=== PATIENT | female | born 1960 | race Caucasian/White ===

== ENCOUNTER 2024-12-27 10:27 | Outpatient (CLI) | payer BC, SELFPAY ==
--- NOTE | ~2024-12-27 | US_ITS ---
EXAMINATION: US VENOUS LOWER EXT ERNIE DATE: 12/27/2024 11:59 INDICATION: Other specified soft tissue disorders. Bilateral lower limb swelling. TECHNIQUE: Grayscale images without and with compression and Doppler images of the bilateral lower extremity veins were obtained. COMPARISON: None. FINDINGS: Right lower extremity: The right common femoral vein, profunda (deep) femoral vein, femoral vein, popliteal vein, peroneal trunk, posterior tibial veins and greater saphenous vein are patent and compressible. Subcutaneous edema at the right calf. Greater saphenous Proximal: 6.6 mm no reflux Mid: 5.6 mm no reflux Distal: 3.6 mm no reflux Lesser saphenous Proximal: 1.3 mm no reflux Distal: 3.8 mm no reflux Left lower extremity: The left common femoral vein, profunda femoral vein, femoral vein, popliteal vein, peroneal trunk, posterior tibial veins and greater saphenous vein are patent. Subcutaneous edema at the left calf. Greater saphenous Proximal: 6.4 mm no reflux Mid: 4.2 mm no reflux Distal: 2.8 mm no reflux Lesser saphenous Proximal: 7.7 mm no reflux Distal: 4.1 mm no reflux IMPRESSION: 1. Patent bilateral lower extremity veins. No evidence of deep venous thrombosis. 2. No venous reflux in either lower extremity. Reviewed, dictated and finalized at location A. [facility] [employer] IMPRESSION: 1. Patent bilateral lower extremity veins. No evidence of deep venous thrombos is. 2. No venous reflux in either lower extremity.
--- OUTSIDE RECORDS SUMMARY | 2024-12-27 15:00 | XMS_ITS | Clinical Summary ---
Author Organization [facility] Jade yang [facility] Address [address] [place] [address] Care Team Providers Care Hospitality Associate Name Role Phone Unavailable Primary Care Provider Unavailabl e Social History Tobacco Use Types Packs/Day Years Used Date Smoking Tobacco: Never Assessed Comments Unknown Sex and Gender Information Value Date Recorded Sex Assigned at Not on file Legal Sex Female 11:18 AM CDT Gender Identity Not on file Sexual Orientation Not on file Plan of Treatment Upcoming Encounters Date Type Department Care Team (Late st Contact Info) Description 03/28/2025 1:30 PM 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 Office Visit [facility] Oncology and Hematology - [address] [place] [address] Kalyan Levy MD [address] [facility] [address] [place] [address] Health Maintenance Due Date Last Done Comments DTAP/TDAP/TD VACCINES (1 - Tdap) 10/18/1979 HPV/Cotest (21-29) 1981 CERVICAL CANCER SCREENING 1990 HPV/Cotest (30-65) 1990 PAP SMEAR 1990 BREAST CANCER SCREENING 2000 COLORECTAL SCREENING 2005 Colorectal Cancer Screening 2005 FIT-DNA Q 3 years 2005 FIT/FOBT Q 1 year 2005 Flex Sig/CT Colonography Q 5 years 2005 ZOSTER VACCINE (1 of 2) 2010 INFLUENZA VACCINE (#1) 2024 RSV VACCINE (60+ or ) (1 - 1-dose 75+ series) 10/18/2035
--- OUTSIDE RECORDS SUMMARY | 2024-12-27 15:00 | XMS_ITS | Clinical Summary ---
Author Organization [facility] Address [address] [place] [address] Phone Care Team Providers Care Factory Manager Name Role Phone Nurse, [facility] nticoagulation [facility] RN Unavailable Sebastian Schmidt MD Unavailable [phone] Johnnie Salmon MD Unavailable Kareem Prather MD Unavailable Provider, Not On File Primary Care Provider Unav ailable Allergies Active Allergy Reactions Criticality Noted Date Comments Amlodipine Other (see Comments) 08/09/2014 Headache,palpitations and swelling Cephalexin Itching 07/14/2009 Demerol Anaphylaxis High 02/03/2011 Hydrochlorothiazide Other (see Comments) 2014 Foot pain Atorvastatin Other (see Comments) 04/06/2013 Muscle pain Lisinopril Other (see Comments) 07/25/2014 Foot pain Metoprolol Other (see Comments) 07/25/2014 Caused shortness of breath Simvastatin Other (see Comments) 04/06/2013 Muscle pain Succinylcholine Other (see Comments) 06/28/2009 On vent briefly post C- Section as didn't breathe Adhesive Tape Other (see Comments) 09/21/2011 blister Medications Cholecalciferol (VITAMIN D) 1000 UNIT PO CAPS Take 1 Cap by mouth daily. Active Vilazodone HCl (VIIBRYD) 40 MG PO TABS Take 1 Tab by mouth daily. Active clonazePAM 0.5 MG PO TABS Take 0.5 mg by mouth every morning. Active CLONAZEPAM 2 MG PO TABS TAKE 1 TABLET BY MOUTH DAILY NEEDED 30 Tab 0 2 Active polyethylene glycol (MIRALAX) PO POWD Take 17 g by mouth daily. 17 g = 1 scoop. Dissolve in 4 -8 oz of water or other liquid. 1530 g 3 2 Active diphenhydrAMINE (BENADRYL) 25 MG PO CAPS Take 25 mg by mouth nightly as needed. Active Calcium Citrate (CITRACAL PO) Take 2 Tabs by mouth every morning. 1200 mg Active niacin 500 MG PO TABS Take 1,000 mg by mouth daily. Active Cyanocobalamin (VITAMIN B 12 PO) Take 1,000 mcg by mouth daily. Active albuterol (2.5 MG/3ML) 0.083% IN NEBU 3 mL by Nebulization route every 6 hours as needed for Wheezing. 30 Vial 1 3 Active anastrozole (ARIMIDEX) 1 MG Tablet 5 Active FLUVIRIN Suspension 0 5 Active TOPROL XL 25 MG TABLET SR 24 HR 5 Active Loratadine 10 MG Capsule Take by mouth. Acti ve acyclovir (ZOVIRAX) 200 MG Capsule 0 5 Active gabapentin (NEURONTIN) 300 MG Capsule 0 5 Active famotidine (PEPCID) 40 MG Tablet Take 1 Tab by mouth daily. 90 Tab 3 6 Active losartan (COZAAR) 25 MG Tablet Take 1 Tab by mouth daily. 90 Tab 1 6 Active lovastatin (MEVACOR) 20 MG Tablet Take 1.5 Tabs by mouth every evening. 135 Tab 1 6 Active rivaroxaban (XARELTO) 20 MG Tablet Take 1 Tab by mouth daily. Take with food. 90 Tab 0 6 Active Active Problems Patient Care Coordination No te Formatting of this note is d ifferent from the original. Patient Care Plan Please notify Online Producer Management if Joellen Mcgregor is hospitalized. Phone number: [phone] Joellen Mcgregor (:1960) Age: 52 y.o.. Care Plan documented on 09/05/2013. Care Management Tiers - AMB Tier of Care Management currently on: Tier II Reason for placement in Tier II?: Is not interested in Care Management at time of initial outreach Recent Data: Wt Readings from Last 3 Encounters: 08/29/13 253 lb (114.76 kg) 06/26/13 259 lb (117.482 kg) 04/06/13 255 lb (115.667 kg) BP Readings from Last 3 Encounters: 08/29/13 128/82 06/26/13 122/74 04/06/13 140/100 Tobacco use: reports that she quit smoking about 9 months ago. Her smoking use included Cigarettes. She smoked 0.50 packs per day. She has never used smokeless tobacco. Alcohol use: reports that drinks alcohol. Drug use: reports that she does not use illicit drugs. Care Team: Patient Care Team Relationship Specialty Notifications Start End Mamadou Velazco MD PCP - General Family Medicine 12/16/12 Address: [address] [facility] [address] [facility] [address] Nurse, Ca Anc 07/16/11 Address: [address] [facility] [address] Sebastian Schmidt MD Consulting Physician Cardiovascular Disease - Cardiology 08/07/11 Address: [facility] [facility] [address] [facility] [address] [facility] [place], [place] - [address] [facility] [address] [facility] [phone] [facility] [place] - [address] [place] [address] [facility] - [place], [place] - [address] [place], [place] [address] [facility] [address] [facility] [address] - [place], [place] - [phone] [facility] [address] Problem Noted Date Diagnosed Date Prediabetes 12/21/2014 SHABBIR (obstructive sleep apnea) 09/06/2014 Lung nodule 09/06/2014 Diverticulosis 01/26/2013 Colon polyps 01/26/2013 Bilateral pulmonary embolism 11/23/2012 Hydronephrosis, bilateral 09/23/2011 Blood loss anemia 09/22/2011 Hematuria 09/22/2011 Hx pulmonary embolism 09/22/2011 Heartburn 09/17/2011 Uterine prolapse 09/16/2011 Fibroids, intramural 09/16/2011 PVC (premature ventricular contraction) 08/18/19 12 Malignant neoplasm of Right Breast - UOQ - Pathologic Stage IIA - ([id number]) 07/03/2009 Overview (07/03/2009): With Multifocal Ductal Vurbsnzrd-gn-Vbav Right Breast Ductal Dlovftfcw-vt-xhuy Lef t Breast - Pathologic Stage 0 - ([id number]) 07/03/2009 Hypertension, chronic 07/03/2009 H/O: alcohol abuse 07/03/2009 Hyperlipidemia 07/03/2009 Pseudocholinesterase deficiency 07/03/2009 Allergic state Panic disorder Degenerative arthritis of hip Overview (05/22/2010): Hips and back Insomnia Resolved Problems Problem Noted Date Diagnosed Date Resolved Date Online Producer Management - Inactive 09/05/2013 05/10/2014 Acute respiratory insufficie ncy, due to acute PEs 11/26/2012 12/23/2012 Acute bronchospasm, pee to bilateral PEs 11/26/2012 12/23/2012 Pelvic hematoma, female 09/22/201112/09 Hypotension 09/17/2011 12/23/2012 Postoperative anemia due to acute blood loss 2 12/23/2012 Leukocytosis 09/17/2011 12/23/2012 Palpitations 08/18/2011 12/23/2012 Pulmonary embolism, subacute 06/12/2011 12/23/2012 Elevated troponin 06/12/2011 12/20/2012 Immunizations Immunization Administration Dates Next Due Influenza Vaccine 11/26/2012 Influenza Vaccine greater than 3 yrs ,12/02/2010,11/22/2009,2008 Influenza Vaccine less than 3 yrs 12/09/2008 PUR TDAP 7+ YRS IM 04/06/2013 Pneumococcal Vaccine Adult - 23 Valent 12/24/2008 TB Skin Test 06/10/2011 TD VACCINE 02/08/1999 Family History Medical History Relation Name Comments Cancer Maternal Grandmother breast cancer Chronic Obstructive Pulmonary Disease Mother Relation Name Status Comments Father Alive Maternal Grandmother Mother Social History Tobacco Use Types Packs/Day Years Used Date Smoking Tobacco: Former Cigarettes 0.5 Q uit: 11/24/2012 Smokeless Tobacco: Never Tobacco Cessation:Counseling Given: No Comments:quit smoking over 20 yrs ago re-started smoking in may until november Alcohol Use Standard Drinks/Week Comments Yes 0 (1 standard drink = 0.6 oz pur e alcohol) Recovering ETOH Comments No Sex and Gender Information Value Date Recorded Sex Assigned at Not on file Legal Sex Female 3:25 AM ASSEMBLER BODY Gender Identity Not on file Sexual Orientation Not on file Last Filed Vital Signs Vital Sign Reading Time Taken Comments Blood Pressure 138/68 02/06/2015 4:38 PM ASSEMBLER [employer] Pulse 98 02/06/2015 4:38 PM ASSEMBLER [employer]ODY Temperature 37.3 C (99.1 F) 02/06/2015 4:38 PM ASSEMBLER BODY Respiratory Rate 16 02/06/2015 4:38 PM ASSEMBLER BODY Oxygen Saturation 98% 02/06/2015 4:38 PM ASSEMBLER BODY Inhaled Oxygen Concentration - - Weight 117.9 kg (260 lb) 02/06/2015 4:38 PM ASSEMBLER BODY Height 172.7 cm (5' 8) 02/06/2015 4:38 PM ASSEMBLER BODY Body Mass Index 39.53 02/06/2015 4:38 PM ASSEMBLER BODY Plan of Treatment Health Maintenance Due Date Last Done Comments SARS-COV-2 Immunization (#1) 1965 Varicella Immunization (1 of 2 - 13+ 2-dose series) 1973 Zoster Immunization (1 of 2) 10/18/1979 Cologuard 2005 Immunochemical Fecal Occult Blood 2005 Pneumococcal Immunization (50+ years) (2 of 2 - PCV) 12/24/2009 12/24/2008 Respiratory Syncytial Virus (RSV) Immunization (Adult) (1 - Risk 50-74 years 1-dose series) 2010 Colonoscopy 01/27/2016 01/26/2013, 01/26/2013 Colorectal Cancer Screening 01/27/2016 Influenza Immunization (#1) 10/09/202411/08, 11/04/2011, 12/02/2010, Additional history exists Pneumococcal Immunization Combined Discontinued 12/24/2008 Mammogram Unilateral Discontinued 05/13/2009, 05/13/2009, 04/16/2009, Additional history exists Hepatitis C Virus (HCV) Screening Completed 06/16/2010 DTaP/Tdap/Td Immunization Discontinued 04/06/2013, 02/1999 Hepatitis B Immunization Aged Out No longer eligible based on patient's age to complete this topic Human Papillomavirus (HPV) Immunization Aged Out No longer eligible based on patient's age to complete this topic Meningococcal Immunization (ACWY) Aged Out No longer eligible based on patient's age to complete this topic Rotavirus Immunization Aged Out No lo nger eligible based on patient's age to complete this topic Medical Devices Implanted Type Area Rag Cutting Machine Tender Device Identifier Shelf Expiration Date Model / Serial / Lot Tissue Skin Alloderm 16 X 20 Cm - [id number] Implanted:Qty : 1 on 07/04/2009 at [facility] IMPLANT Bilateral: Breast LIFE CELL ROE 02/07/2011 [id number] / / [id number] Device Closure Vascular Mynx 5fr - [id number] Implanted:Qty : 1 on 06/11/2011 by Sebastian Schmidt MD at [facility] IMPLANT Left: Groin [employer] [id number] / / [id number] Procedures Procedure Name Priority Date/Time Associated Diagnosis Comments MA COLSC FLX W/RMVL OF TUMOR POLYP LESION SNARE TQ Routine 01/26/2013 HEPATITIS PANEL ACUTE (AHP) Routine 06/16/2010 9:12 AM CDT Abdominal pain [facility] MRI BREAST W/WO CONTRAST,BILATERAL Routine 05/13/2009 10:50 AM CDT Breast calcification seen on mammogram Breast nodule from Last 3 Months or Most Recently Relevant to Health Maintenance Results * COLONOSCOPY,REMV LESN,SNARE (01/26/2013) us Mamadou Velazco MD MA - SURGERY Final Result * HEPATITIS PANEL ACUTE (AHP) (06/16/2010 9:12 AM CDT) HEPATITIS A IGM ANTIBODY NON DETECTED NON DETECTED [facility] Comment:IGM ANTIBODIES TO CORDOVA V NOT DETECTED, DOES NOT EXCLUDE EARLY ACUTE OR RECOVERED HAV INFECTION. HEP B CORE AB (IGM) NON DETECTED NON DETECTED [facility] Comment:IGM ANTI-HBC NOT DET ECTED. DOES NOT EXCLUDE THE POSSIBILITY OF EXPOSURE TO OR INFECTION WITH HBV. HEPATITIS B SURFACE ANTGEN NON DETECTED NON DETECTED [facility] hepatitis C antibody NON DETECTED NON DETECTED [facility] Comment: ANTIBODIES TO HCV NOT DETECTED: DOES NOT EXCLUDE EARLY ACUTE HCV INFECTION. Performed at [facility], [place] [address]. Blood specimen (specimen) 06/16/2010 9:12 AM CDT 06/16/2010 9:14 AM CDT us Fany Knowles MD HEMATOLOGY ORDERABLES Fin al Result Performing Organization Address City/State/[facility] Co de Phone Number [facility] [address] [place] [address] * [facility] MRI BREAST W/WO CONTRAST,BILATERAL (05/13/2009 10:50 AM CDT) Anatomical Region Laterality Modality breast Bilateral Magnetic Resonan ce 05/13/2009 10:5 0 AM CDT Impressions 05/14/2009 10:42 PM CDT IMPRESSION: 1.) Extensive/multiple areas of suspicious enhancement in the central and superior right breast concerning for carcinoma. At this time, biopsy of two sites in the right breast has been recommended which is to be performed on 05/14/2009. Pending the pathology results from those biopsies, if necessary, further intervention based on either mammographic and/or MR findings may be subsequently recommended. This has already been discussed with the patient. 2.) Nearly 4 cm area of suspicious enhancement in the lateral left breast, posterior depth, which corresponds mammographically to suspicious calcifications in this location. Biopsy of this area is to be done stereotactically on 05/14/2009. MRI BI-RADS: 5 - Highly Suggestive of Malignancy. ATTESTATION: Dr. Maciel Pruett personally reviewed the radiologic study and concurs with this interpretation. Narrative 05/14/2009 10:42 PM CDT DICTATING PHYSICIAN: Alice Pedro M.D., Fellow EXAM: [facility] MRI Breast W/WO Contrast,Bilateral. May 13, 2009 10:50:00 AM. CLINICAL HISTORY: The patient is a 48-year-old female who comes to our institution for second opinion regarding bilateral breast imaging findings. At the time of this dictation, that consultation along with additional imaging has been performed resulting in recommendations for a right breast ultrasound guided biopsy, a right breast stereotactic biopsy, and a left breast stereotactic biopsy which is to be performed on 05/14/2009. Request has been made for bilateral breast MRI prior to intervention for which the patient now presents. COMPARISON EXAMS: Mammography dated 05/13/2009 and focused right breast ultrasound and right axillary ultrasound dated 05/13/2009 from the [facility] breast [place]. In addition, there are mammographic images from [facility] dated 04/16/2009 and 01/25/2009 and there are ultrasound images of the right breast from [facility] dated 04/18/2009. Technique: The patient's breasts were imaged in a Jolicloud 1.5 Mae magnet using neoSurgical software and a Sentinelle table with a dedicated breast coil. Imaging consisted of: axial FSE T2, axial STIR, axial FSE T1, sagittal T2 with fat saturation, axial vibrant T1 3D- FSPGR with fat saturation pre-contrast and dynamic enhanced sequences. During the first dynamic acquisition, 20 ml of Gadolinium (Prohance) was administered as an intravenous bolus injection. A total of five sequential 3D data-sets were acquired over 8 minutes 22 seconds. Following acquisition of the dynamic sequence, axial T1 3D-FSPGR imaging with fat saturation was performed with right to left phase encoding. Post processing techniques: Time-intensity curves, pre- and post-contrast subtraction sequences, CADstream analysis and 3-D images (MIPS, sagittal and coronal reconstructed images) were obtained at the work station. Findings: The tissue of both breast is composed of scattered fibroglandular tissue. Following intravenous gadolinium administration, there is asymmetric background glandular enhancement. On the right, there is moderate background glandular enhancement, especially centrally and superiorly. On the left, there is mild background glandular enhancement. LEFT BREAST: Pre-gadolinium T1 and T2-weighted images demonstrate no suspicious mass. Following intravenous gadolinium administration, there is a clumped linear area of suspicious enhancement in the lateral, slightly inferior left breast, posterior depth, which demonstrates rapid initial enhancement (128%) with washout. This spans nearly 4 cm as measured on SAG: L130.7mm and correlates in position to the suspicious calcifications seen mammographically already recommended for biopsy on 05/14/2009. Furthermore, embedded/adjacent to this region is a more focal area of suspicious enhancement measuring 8 mm (AX: I32.1mm) which demonstrates rapid initial enhancement (170%) with washout. No adenopathy, skin or nipple abnormalities are identified. RIGHT BREAST: Pre-gadolinium T1 and T2-weighted images demonstrate no suspicious mass. Following intravenous gadolinium administration, there are numerous areas of suspicious enhancement in the right breast, superiorly, medially, centrally, and laterally which are represented by the followin.) a 1.5 cm x 2.0 cm x 4.9 cm area of suspicious enhancement in the lateral superior right breast, mid-depth, which demonstrates rapid initial enhancement (260%) with washout (AX: S37.5mm). This area likely corresponds to the region of architectural distortion with associated density and calcifications previously described in this region and for which biopsy is being performed on 05/14/2009. 2.) a 7 mm x 1.1 cm x 1.2 cm area of suspicious enhancement in the central superior right breast, anterior depth, demonstrating rapid initial enhancement (118%) with washout (AX: S 0.3mm). This is felt to be territory sales representative of numerous suspicious areas of enhancement seen in the subareolar/periareolar region of the right breast. These areas likely correspond with suspicious calcifications in the anterior breast for which a stereotactic guided biopsy is being performed on 05/14/2009. 3.) a 9 mm x 1.1 cm x 1.3 cm area of suspicious enhancement in the medial superior right breast, mid-depth, demonstrating rapid initial enhancement (185%) with washout (AX: S1.5 mm). Overall, there is fairly extensive suspicious enhancement occupying most of the superior one-half of the right breast, likely territory sales representative of multifocal carcinoma. No adenopathy, skin or nipple abnormalities are identified. Procedure Note Maciel Pruett MD - 05/14/2009 DICTATING PHYSICIAN: Alice Pedro M.D., Fellow EXAM: [facility] MRI Breast W/WO Contrast,Bilateral. May 13, 2009 10:50:00 AM. CLINICAL HISTORY: The patient is a 48-year-old female who [facility] regarding bilateral breast imagingfindings. At the time of this dictation, that consultation along withadditional imaging has been performed resulting in recommendations for aright breast ultrasound guided biopsy, a right breast stereotactic biopsy,and a left breast stereotactic biopsy which is to be performed on05/14/2009. Request has been made for bilateral breast MRI prior tointervention for which the patient now presents. COMPARISON EXAMS: Mammography dated 05/13/2009 and focused right breastultrasound and right axillary ultrasound dated 05/13/2009 from the [facility] [place]. [facility], [facility] and thereare ultrasound images of the right breast from [facility] dated 04/18/2009. Technique: The patient's breasts were imaged in a Jolicloud 1.5 Mae magnet using [employer]ftware and a Sentinelle table with a dedicated breast coil. Imagingconsisted of: axial FSE T2, axial STIR, axial FSE T1, sagittal T2 with fatsaturation, axial vibrant T1 3D- FSPGR with fat saturation pre-contrast anddynamic enhanced sequences. During the first dynamic acquisition, 20 ml ofGadolinium (Prohance) was administered as an intravenous bolus injection.A total of five sequential 3D data-sets were acquired over 8 minutes 22seconds. Following acquisition of the dynamic sequence, axial T1 3D- FSPGRimaging with fat saturation was performed with right to left phaseencoding. Post processing techniques: Time-intensity curves, pre- and post-contrast subtraction sequences,CADstream analysis and 3-D images (MIPS, sagittal and coronalreconstructed images) were obtained at the work station. Findings: The tissue of both breast is composed of scattered fibroglandular tissue.Following intravenous gadolinium administration, there is asymmetricbackground glandular enhancement. On the right, there is moderatebackground glandular enhancement, especially centrally and superiorly. Onthe left, there is mild background glandular enhancement. LEFT BREAST: Pre-gadolinium T1 and T2-weighted images demonstrate nosuspicious mass. Following intravenous gadolinium administration, there is a clumped lineararea of suspicious enhancement in the lateral, slightly inferior leftbreast, posterior depth, which demonstrates rapid initial enhancement(128%) with washout. This spans nearly 4 cm as measured on SAG: L130.7mmand correlates in position to the suspicious calcifications seenmammographically already recommended for biopsy on 05/14/2009.Furthermore, embedded/adjacent to this region is a more focal area ofsuspicious enhancement measuring 8 mm (AX: I32.1mm) which demonstratesrapid initial enhancement (170%) with washout. No adenopathy, skin or nipple abnormalities are identified. RIGHT BREAST: Pre-gadolinium T1 and T2-weighted images demonstrate nosuspicious mass. Following intravenous gadolinium administration, there are numerous areasof suspicious enhancement in the right breast, superiorly, medially,centrally, and laterally which are represented by the followin.) a 1.5 cm x 2.0 cm x 4.9 cm area of suspicious enhancement in thelateral superior right breast, mid-depth, which demonstrates rapid initialenhancement (260%) with washout (AX: S37.5mm). This area likelycorresponds to the region of architectural distortion with associateddensity and calcifications previously described in this region and forwhich biopsy is being performed on 05/14/2009. 2.) a 7 mm x 1.1 cm x 1.2 cm area of suspicious enhancement in thecentral superior right breast, anterior depth, demonstrating rapid initialenhancement (118%) with washout (AX: S 0.3mm). This is felt to berepresentative of numerous suspicious areas of enhancement seen in thesubareolar/periareolar region of the right breast. These areas likelycorrespond with suspicious calcifications in the anterior breast for whicha stereotactic guided biopsy is being performed on 05/14/2009. 3.) a 9 mm x 1.1 cm x 1.3 cm area of suspicious enhancement in themedial superior right breast, mid-depth, demonstrating rapid initialenhancement (185%) with washout (AX: S1.5 mm). Overall, there is fairly extensive suspicious enhancement occupying mostof the superior one-half of the right breast, likely territory sales representative ofmultifocal carcinoma. No adenopathy, skin or nipple abnormalities are identified. IMPRESSION: 1.) Extensive/multiple areas of suspicious enhancement in the central andsuperior right breast concerning for carcinoma. At this time, biopsy oftwo sites in the right breast has been recommended which is to beperformed on 05/14/2009. Pending the pathology results from thosebiopsies, if necessary, further intervention based on either mammographicand/or MR findings may be subsequently recommended. This has already beendiscussed with the patient. 2.) Nearly 4 cm area of suspicious enhancement in the lateral leftbreast, posterior depth, which corresponds mammographically to suspiciouscalcifications in this location. Biopsy of this area is to be donestereotactically on 05/14/2009. MRI BI-RADS: 5 - Highly Suggestive of Malignancy. ATTESTATION: Dr. Maciel Pruett personally reviewed the radiologic studyand concurs with this interpretation. us Fany Knowles MD IMG MR ORDERABLES Final R esult from Last 3 Months or Most Recently Relevant to Health Maintenance Insurance [address] Advance Directives * Full Code (Latest Code Status on File) Date Activated Date Inactivated Comments 11/23/2012 10:08 PM 11/26/2012 6:15 PM * Full Code Date Activated Date Inactivated Comments 09/21/2011 5:05 PM 09/24/2011 7:12 PM * Full Code Date Activated Date Inactivated Comments 06/10/2011 6:04 PM 06/13/2011 5:01 PM Care Teams Factory Manager Relationship Specialty Start Date End Date Provider, Not On File [place] PCP - General 03/11/16 Nurse, [facility], RN [address] [place] [address] 07/16/11 Sebastian Schmidt MD [address] [facility] [address] Consulting Physician Cardiovascular Disease - Cardiology 08/07/11 Johnnie Salmon MD [address] [facility] [place] [address] Project Architect Pulmonary Disease 04/18/14 Kareem Prather MD [address] [place] [address] Project Architect Pulmonary Disease 10/16/14
== END 2024-12-27 10:28 | disposition home or self-care (01) ==
PROVIDERS: PCP Nurse Practitioner Family; Visit Provider Nurse Practitioner Family
DX: M79.89 Other specified soft tissue disorders (principal); I87.2 Venous insufficiency (chronic) (peripheral)
CPT/HCPCS: 93970